=== PATIENT | male | born 1990 | race American Indian/Alaskan Native ===

== ENCOUNTER 2017-06-07 22:35 | Emergency (ER) | payer BC ==
--- NOTE | 2017-06-07 23:26 | EDM.PDOC ---
ED HPI GENERAL MEDICAL PROBLEM - General Chief Complaint: Drug or Alcohol Abuse Stated Complaint: MEDICAL CLEARENCE Time Seen by Provider: 06/07/17 22:38 Source of Information: Reports: Patient, RN (Manohar) History Limitations: Reports: No Limitations - History of Present Illness INITIAL COMMENTS - FREE TEXT/NARRATIVE: The patient was brought to the emergency department by the [employer] police for medical clearance to go to penitentiary. The patient apparently was pulled over for drunk driving and blew over 0.3 on a breathalyzer. The penitentiary apparently has a rule that if a patient's alcohol level is over 0.3, they needs to be medically cleared before going to penitentiary. The police chief deputy, however, left the ED shortly after dropping the patient off, telling the nurses that the patient would receive a letter in the mail instructing him to report to court. The patient confirms the above story, stating that he got pulled over while driving home, and that he blew a 0.316. He states that he had 4 shots of hard alcohol tonight, but denies any recreational drug use. He states that he has had a prior DUI in approximately 2011, but that he does not drink heavily very often, only around holidays. The patient has no complaints, other than stating that he feels sleepy. The patient does not have a PCP. - Related Data Allergies Allergy/AdvReac Type Severity Reaction Status Date / Time No Known Allergies Allergy Verified 06/07/17 22:45 Home Meds: Home Meds . [No Known Home Meds] 06/07/17 [History] Past Medical History - Past Health History Medical/Surgical History: Denies Medical/Surgical History Social & Family History - Tobacco Use Smoking Status *Q: Current Every Day Smoker Years of Tobacco use: 5 Packs/Tins Daily: 0.1 - Alcohol Use Days Per Week of Alcohol Use: 2 Number of Drinks Per Day: 5 Total Drinks Per Week: 10 Alcohol Use Frequency: Socially - Recreational Drug Use Recreational Drug Use: No - Living Situation & Occupation Living situation: Reports: Single, Other (Roommate) Occupation: Employed ([employer]) ED ROS GENERAL - Review of Systems Review Of Systems: See Below Constitutional: Reports: No Symptoms HEENT: Reports: No Symptoms Respiratory: Reports: No Symptoms Cardiovascular: Reports: No Symptoms Endocrine: Reports: No Symptoms GI/Abdominal: Reports: No Symptoms : Reports: No Symptoms Musculoskeletal: Reports: No Symptoms Skin: Reports: No Symptoms Neurological: Reports: No Symptoms Psychiatric: Reports: No Symptoms Hematologic/Lymphatic: Reports: No Symptoms Immunologic: Reports: No Symptoms ED EXAM, GENERAL - Physical Exam Exam: See Below Exam Limited By: No Limitations General Appearance: Alert, WD/WN, No Apparent Distress, Other (Mild smell of alcohol) Eye Exam: Bilateral Eye: Conjunctival Injection Ears: Normal External Exam, Hearing Grossly Normal Nose: Normal Inspection, No Blood Throat/Mouth: Normal Inspection, Normal Lips, Normal Voice, No Airway Compromise Head: Atraumatic, Normocephalic Neck: Normal Inspection, Full Range of Motion Respiratory/Chest: No Respiratory Distress, Lungs Clear, Normal Breath Sounds, No Accessory Muscle Use Cardiovascular: Normal Peripheral Pulses, Regular Rate, Rhythm, No Gallop, No JVD, No Murmur, No Rub Peripheral Pulses: 4+: Radial (L), Radial (R) GI/Abdominal: Normal Bowel Sounds, Soft, Non-Tender, No Organomegaly, No Distention, No Abnormal Bruit, No Mass (Male) Exam: Deferred Rectal (Males) Exam: Deferred Back Exam: Normal Inspection, Full Range of Motion, NT Extremities: Normal Inspection, Normal Range of Motion, No Pedal Edema, Normal Capillary Refill Neurological: Alert, Oriented, No Motor/Sensory Deficits, Other (Answers questions somewhat slowly, but does not slur his speech) Psychiatric: Normal Affect Skin Exam: Warm, Dry, Intact, Normal Color, No Rash Course - Vital Signs Last Recorded V/S: Last Vital Signs Temp 37.1 C 06/07/17 22:42 Pulse 98 06/07/17 22:42 Resp 17 06/07/17 22:42 BP 167/111 H 06/07/17 22:42 Pulse Ox 97 06/07/17 22:42 - Re-Assessments/Exams Free Text/Narrative Re-Assessment/Exam: 06/07/17 23:21 The medical indication for reordering an alcohol and/or drug level is for evaluation for altered mental status. While the patient appears to be somewhat intoxicated, he admits drinking alcohol, and, as above, his alcohol level was elevated according to the breathalyzer. I have no medical reason to order an alcohol and/or drug level, and an elevated alcohol or drug level would not change my management, as the patient is currently hemodynamically stable and has an otherwise unremarkable physical exam. Further, an alcohol level drawn here in the ED is not useful for legal purposes. The patient states that he can call a cab to get home. Since the police have opted to not take him to penitentiary tonight, I will discharge him. Departure - Departure Time of Disposition: 23:25 Disposition: Home, Self-Care 01 Condition: Good, Fair Clinical Impression: Alcohol intoxication - Discharge Information Instructions: Alcohol Intoxication, [id number] Referrals: PCP,Hannah [Primary Care Provider] - Medardo Warren [Physician] - Additional Instructions: You were seen in the emergency room after being arrested for drunk driving. While you are clinically intoxicated, no injury was found. We recommend you follow-up with Dr. Warren in the clinic, as a PCP. If any other problems, please do not hesitate to return to the ER.
== END 2017-06-07 23:32 | disposition home or self-care (01) ==
LOC: JD.ED 22:35
DX: F10.129 Alcohol abuse with intoxication, unspecified (principal); F17.210 Nicotine dependence, cigarettes, uncomplicated
CPT/HCPCS: 99283; 99284